=== PATIENT | male | born 1950 | race Caucasian/White ===

== ENCOUNTER 2016-06-30 14:13 | Inpatient (IN) | payer MEDICARE ==
--- NOTE | 2016-06-30 14:29 | ER Document Report ---
ED Neuro Symptoms/Deficit - General Mode of Arrival: Medic Information source: Patient Notes: Patient is a 66-year-old male, with history of hemorrhagic CVA in 2002, presenting to the emergency department with concerns of another possible stroke. Patient states he awoke at 10:30 AM with increased left-sided weakness and facial droop with slurred speech. Patient states that he went to bed at approximately 0100 at his baseline. Patient admits to falling yesterday, but states that he falls almost daily due to his baseline left-sided weakness. Patient confirms that his left-sided weakness is indeed worse than his baseline today. Patient also has a history of smoking, hypertension, and diabetes. TRAVEL OUTSIDE OF THE [place] IN LAST 30 DAYS: No - HPI Patient complains to provider of: Facial Droop - Left, Speech Impairment - Slurred, Weakness - Left Onset: This morning - 10:30 (awoke with symptoms) Awoke with symptoms: Yes Symptoms are: Constant, Noted on awakening Duration: Continues in ED Baseline Cognitive: Alert, oriented X 3 <JACKLYN GARCIA - Last Filed: 06/30/16 14:33> <REGINALD POON - Last Filed: 06/30/16 15:25> - General Chief Complaint: S/S of Possible Stroke Stated Complaint: STROKE SYMPTOMS - Related Data Allergies/Adverse Reactions: No Known Allergies Allergy (Verified 08/22/11 16:07) Past Medical History - General Information source: Patient, [facility] Records - Social History Smoking Status: Current Every Day Smoker Cigarette use (# per day): Yes Family History: Reviewed & Not Pertinent - Past Medical History Cardiac Medical History: Reports: Hx Hypertension Neurological Medical History: Reports: Hx Cerebrovascular Accident - 2002 Endocrine Medical History: Reports: Hx Diabetes Mellitus Type 2 <JACKLYN GARCIA - Last Filed: 06/30/16 14:33> Review of Systems - Review of Systems Constitutional: See HPI, Weakness - Left-sided EENT: No symptoms reported Cardiovascular: No symptoms reported Respiratory: No symptoms reported Gastrointestinal: No symptoms reported Genitourinary: No symptoms reported Male Genitourinary: No symptoms reported Musculoskeletal: No symptoms reported Skin: No symptoms reported Hematologic/Lymphatic: No symptoms reported Neurological/Psychological: See HPI, Weakness - Left-sided, Speech impairment, Other - Left Facial Droop -: Yes All other systems reviewed and negative <JACKLYN GARCIA - Last Filed: 06/30/16 14:33> Physical Exam - Vital signs Interpretation: Normal - Notes Notes: GENERAL: VS as per nursing doc. Well-appearing, well-nourished and in no acute distress. HEAD: Atraumatic, normocephalic. EYES: Pupils equal round and reactive to light, extraocular movements intact, sclera anicteric, no conjunctival injection or discharge. ENT: Nares patent, oropharynx clear without exudates. Moist mucous membranes. NECK: Normal range of motion, supple, no carotid bruits. LUNGS: Breath sounds are very coarse with mild wheezing bilaterally and equal. No rales or rhonchi. HEART: Normal S1S2. Regular rate and rhythm without murmurs. Equal peripheral pulses. ABDOMEN: Soft, non-tender. Protuberant EXTREMITIES: Normal range of motion. No calf tenderness. 2+ pitting edema. NEUROLOGICAL: GCS 15, Cranial nerves II-XII intact except for left facial nasolabial flattening and slight droop. Normal visual mccoy. Normal speech without aphasia. Left pronator drift. 5/5 RUE strength, 4/5 RLE strength, 5/5 LUE strength, 5-/5 LLE strength. No cerebellar abnormalities including normal finger-nose testing. Negative Babinski, 1+= DTR refelexes. PSYCH: Normal mood, normal affect. SKIN: Warm, Dry, no cyanosis, Cap refill < 2 sec. there are superficial abrasions to the right leg and left wrist no bony abnormality <REGINALD POON - Last Filed: 06/30/16 15:25> Course - Re-evaluation Re-evalutation: 06/30/16 14:31 Patient have a hemorrhagic stroke in 2002 and this is a wake-up stroke at 10:30 today so no definitive last known normal except for approximately 1 AM when the patient went to bed. He is not a TPA candidate for both of these reasons. He does have some chronic left arm and leg weakness which appears to be the cause of his fall yesterday but he states it is significantly worse today. - Laboratory Result Diagrams: 06/30/16 14:30 06/30/16 14:30 - Diagnostic Test Radiology reviewed: Image reviewed, Reports reviewed - CT: No acute process XRay : Non-acute - EKG Interpretation by Mo EKG shows normal: Sinus rhythm Rate: Normal Rhythm: NSR Additional EKG results interpreted by me: 06/30/16 14:32 There is some mild ST depression in the inferior leads. Normal QRS. No ectopy. - Consults Dr. Guardado Time consulted: 15:23 Consulted provider: will see as inpatient - Discussed case with Dr. Guardado and he will admit patient <REGINALD POON - Last Filed: 06/30/16 15:25> ED Alteplase Inc/Exc Criteria ED NIH Stroke Scale Discharge <JACKLYN GARCIA - Last Filed: 06/30/16 14:33> - Discharge Admitting Provider: Hospitalist - Dr. Guardado Unit Admitted: Telemetry Scribe Attestation: 06/30/16 15:24 I personally performed the services described in the documentation, reviewed and edited the documentation which was dictated to the scribe in my presence, and it accurately records my words and actions. <REGINALD POON - Last Filed: 06/30/16 15:25> - Discharge Clinical Impression: CVA (cerebral vascular accident) Condition: Serious Disposition: ADMITTED INPATIENT Scribe Documentation - Scribe Written by Scribe:: Jacklyn Garcia 06/30/2016 1433 acting as scribe for :: Kumar <JACKLYN GARCIA - Last Filed: 06/30/16 14:33>
[2016-06-30 14:43] LABS: ABSOLUTE BASOPHILS # (AUTO) 0.1 10^3/uL (0.0-0.2); ABSOLUTE EOSINOPHILS # (AUTO) 0.1 10^3/uL (0.0-0.6); ABSOLUTE LYMPHOCYTES (AUTO) 3.5 10^3/uL (0.5-4.7); ABSOLUTE MONOCYTES (AUTO) 0.6 10^3/uL (0.1-1.4); ABSOLUTE NEUT (AUTO) 6.4 10^3/uL (1.7-8.2); BASOPHILS % (AUTO) 0.5 % (0-2); HEMOGLOBIN 11.9 g/dL (13.5-17.0); HGB HCT DIFFERENCE 0.7; LYMPHOCYTES % (AUTO) 32.7 % (13-45); MEAN CORPUSCULAR HEMOGLOBIN 30.7 pg (27.0-33.4); MEAN CORPUSCULAR HGB CONC 33.9 g/dL (32.0-36.0); MEAN CORPUSCULAR VOLUME 91 fl (80-97); MONOCYTES % (AUTO) 5.8 % (3-13); RED BLOOD COUNT 3.86 10^6/uL (4.35-5.55); RED CELL DISTRIBUTION WIDTH 14.3 % (11.5-14.0); WHITE BLOOD COUNT 10.7 10^3/uL (4.0-10.5)
[2016-06-30 14:46] LABS: PROTHROMBIN TIME 12.1 SEC (11.4-15.4)
[2016-06-30 14:47] LABS: PARTIAL THROMBOPLASTIN TIME 31.8 SEC (23.5-35.8)
[2016-06-30] MEDS ORDERED: ASPIRIN 81 MG TABLET, CHEWABLE PO ONE (15:06)
[2016-06-30 15:07] LABS: BLOOD UREA NITROGEN 38 mg/dL (7-20); CALCIUM 7.8 mg/dL (8.4-10.2); CREATININE RESULT 1.48 mg/dL (0.52-1.25); GLUCOSE 171 mg/dL (75-110)
[2016-06-30 15:08] LABS: ALANINE AMINOTRANSFERASE 34 U/L (21-72); ALBUMIN 2.7 g/dL (3.5-5.0); ALKALINE PHOSPHATASE 128 U/L (38-126); ANION GAP 8 (5-19); ASPARTATE AMINO TRANSFERASE 32 U/L (17-59); BILIRUBIN,DIRECT 0.2 mg/dL (0.0-0.4); BILIRUBIN,TOTAL 0.2 mg/dL (0.2-1.3); CARBON DIOXIDE 29 mmol/L (22-30); CHLORIDE 105 mmol/L (98-107); CREATINE KINASE 329 U/L (55-170); SODIUM 141.7 mmol/L (137-145); TOTAL PROTEIN 5.3 g/dL (6.3-8.2)
[2016-06-30 15:20] LABS: CREATINE KINASE MB 3.63 ng/mL (<4.55); TROPONIN I 0.013 ng/mL
[2016-06-30] MEDS ORDERED: DEXTROSE 50%-WATER 25 GM/50 ML DISP.SYRIN IV PRN ×2 (15:45)
[2016-06-30] MEDS ORDERED: DEXTROSE 40% GEL 15 GM TUBE PO PRN ×2 (15:45)
[2016-06-30] MEDS ORDERED: GLUCAGON,HUMAN RECOMB 1 MG INJ IM PRN (15:45)
[2016-06-30] MEDS ORDERED: INSULIN LISPRO 100 UNIT/ML 3 ML VIAL SUBCUT PRN (15:45)
[2016-06-30] MEDS ORDERED: HYDRALAZINE HCL INJ/PF 20 MG/1 ML SDV IV PRN (15:46)
[2016-06-30] MEDS ORDERED: ONDANSETRON HCL INJ/PF 4 MG/2 ML SDV IV PRN (15:53)
[2016-06-30] MEDS ORDERED: ALBUTEROL SULFATE 0.083% NEB 2.5 MG/3 ML AMPUL NEB PRN (16:18)
--- NOTE | 2016-06-30 16:32 | PDOC H&P ---
History of Present Illness [facility] Patient complains of: Difficulty speaking History of Present Illness: EVELYN BROWN is a 66 year old male with past medical history of hemorrhagic stroke in 2002 and residual mild left-sided weakness presents with onset this morning at 10:30 AM upon awakening of difficulty speaking and possibly slight worsening of his chronic left-sided weakness. He went to bed at 1 AM and he had no new difficulties at that time. Patient does not take home aspirin regimen. He continues to smoke despite prior stroke and multiple risk factors. He resides with his daughter and other family members and ambulates with a rolling walker at baseline. Past Medical History Cardiac Medical History: Reports: Hyperlipidema, Hypertension Pulmonary Medical History: Reports: Chronic Obstructive Pulmonary Disease (COPD) Neurological Medical History: Reports: Hemorrhagic CVA Endocrine Medical History: Reports: Diabetes Mellitus Type 2 Renal/ Medical History: Reports: Chronic Kidney Disease Psychiatric Medical History: Reports: Tobacco Dependency Past Surgical History Past Surgical History: Reports: Cholecystectomy, Orthopedic Surgery - Left knee , left arm, back Social History Information Source: Patient Lives with: Family Smoking Status: Current Every Day Smoker Frequency of Alcohol Use: None Hx Recreational Drug Use: No Hx Prescription Drug Abuse: No - Advance Directive Resuscitation Status: Full Code Family History Family History: CAD - Father, Malignancy - Lung cancer mother Parental Family History Reviewed: Yes Children Family History Reviewed: Yes Sibling(s) Family History Reviewed.: Yes Medication/Allergy Home Medications: Amlodipine Besylate [Norvasc 5 mg Tablet] 5 mg PO DAILY 08/22/11 Aspirin [Aspirin 325 mg Tablet] 325 mg PO DAILY 08/22/11 Citalopram Hydrobromide [Celexa 20 Mg Tablet] 20 mg PO 08/22/11 Hydrochlorothiazide [Hydrodiuril 50 mg Tablet] 50 mg PO QAM 08/22/11 Insulin Glargine,Hum.rec.anlog [Lantus] 44 units SUBCUT QHS 08/22/11 Insulin Lispro [Humalog] 10 units SUBCUT PRN PRN 08/22/11 Lisinopril [Prinivil 40 mg Tablet] 40 mg PO AC 08/22/11 Meloxicam [Mobic 7.5 Mg Tablet] 7.5 mg PO PRN PRN 08/22/11 Metformin HCl [Glucophage 500 Mg Tablet] 1,000 mg PO BID 08/22/11 [place]-3 Acid Ethyl Esters [Lovaza 1 Gm Capsule] 1 gm PO 08/22/11 Omeprazole [Prilosec 20 mg Capsule] 20 mg PO BID 08/22/11 Pramipexole Di-HCl [Mirapex 0.5 Mg Tablet] 0.5 mg PO 08/22/11 Pravastatin Sodium [Pravachol] 80 mg PO 08/22/11 Trazodone HCl [Desyrel 50 Mg Tablet] 50 mg PO QHS 08/22/11 Allergies/Adverse Reactions: No Known Allergies Allergy (Verified 08/22/11 16:07) Review of Systems Constitutional: ABSENT: chills, fever(s), headache(s), weight gain, weight loss Eyes: ABSENT: visual disturbances Ears: ABSENT: hearing changes Cardiovascular: PRESENT: edema. ABSENT: chest pain, dyspnea on exertion, orthropnea, palpitations Respiratory: ABSENT: cough, hemoptysis Gastrointestinal: ABSENT: abdominal pain, constipation, diarrhea, hematemesis, hematochezia, nausea, vomiting Genitourinary: ABSENT: dysuria, hematuria Musculoskeletal: ABSENT: joint swelling Integumentary: ABSENT: rash, wounds Neurological: PRESENT: abnormal speech, focal weakness, lack of coordination. ABSENT: abnormal gait, confusion, dizziness, syncope Psychiatric: ABSENT: anxiety, depression, homidical ideation, suicidal ideation Endocrine: ABSENT: cold intolerance, heat intolerance, polydipsia, polyuria Hematologic/Lymphatic: ABSENT: easy bleeding, easy bruising Physical Exam Vital Signs: Temp Pulse Resp BP Pulse Ox 97.7 F 79 14 132/57 H 93 06/30/16 14:39 06/30/16 14:39 06/30/16 15:01 06/30/16 15:01 06/30/16 15:01 Intake & Output 06/29/16 06/30/16 07/01/16 06:59 06:59 06:59 Weight 69.853 kg General appearance: PRESENT: no acute distress, well-developed, well-nourished Head exam: PRESENT: atraumatic, normocephalic Eye exam: PRESENT: conjunctiva pink, EOMI, PERRLA. ABSENT: scleral icterus Ear exam: PRESENT: normal external ear exam Mouth exam: PRESENT: moist, tongue midline Neck exam: ABSENT: carotid bruit, JVD, lymphadenopathy, thyromegaly Respiratory exam: PRESENT: wheezes. ABSENT: rales, rhonchi Cardiovascular exam: PRESENT: RRR. ABSENT: diastolic murmur, rubs, systolic murmur Pulses: PRESENT: normal dorsalis pedis pul Vascular exam: PRESENT: normal capillary refill GI/Abdominal exam: PRESENT: normal bowel sounds, soft. ABSENT: distended, guarding, mass, organolmegaly, rebound, tenderness Rectal exam: PRESENT: deferred Extremities exam: PRESENT: full ROM, pedal edema, +2 edema. ABSENT: calf tenderness, clubbing Neurological exam: PRESENT: alert, awake, oriented to person, oriented to place , oriented to time, oriented to situation, CN II-XII grossly intact, motor sensory deficit - 5/5 strength in right upper extremity and right lower extremity. 4/5 strength in left upper extremity and left lower extremity. Psychiatric exam: PRESENT: appropriate affect, normal mood. ABSENT: homicidal ideation, suicidal ideation Skin exam: PRESENT: dry, intact, warm, other - Unusual rash over left forearm. ABSENT: cyanosis, rash Results Laboratory Results: 06/30/16 14:30 06/30/16 14:30 06/30/16 06/30/16 14:30 14:30 WBC 10.7 H RBC 3.86 L Hgb 11.9 L Hct 35.0 L MCV 91 MCH 30.7 MCHC 33.9 RDW 14.3 H Plt Count 277 Seg Neutrophils % 60.0 Lymphocytes % 32.7 Monocytes % 5.8 Eosinophils % 1.0 Basophils % 0.5 Absolute Neutrophils 6.4 Absolute Lymphocytes 3.5 Absolute Monocytes 0.6 Absolute Eosinophils 0.1 Absolute Basophils 0.1 Sodium 141.7 Potassium 5.0 Chloride 105 Carbon Dioxide 29 Anion Gap 8 BUN 38 H Creatinine 1.48 H Est GFR ( Amer) 58 L Est GFR (Non-Af Amer) 48 L Glucose 171 H Calcium 7.8 L Total Bilirubin 0.2 AST 32 ALT 34 Alkaline Phosphatase 128 H Total Protein 5.3 L Albumin 2.7 L 06/30/16 06/30/16 14:30 14:30 Creatine Kinase 329 H CK-MB (CK-2) 3.63 Troponin I 0.013 Impressions: Chest X-Ray 06/30/16 14:13 IMPRESSION: NO SIGNIFICANT RADIOGRAPHIC FINDING IN THE CHEST. Head CT 06/30/16 14:13 IMPRESSION: No acute intracranial abnormality. Pertinent positive or negative findings of the imaging study reported as a CRITICAL EXAM to Kriss Rodrigues at14:27 on 06/30/2016. Category of Critical Exam: Stroke alert Assessment & Plan - Diagnosis (1) CVA (cerebral vascular accident) Is this a current diagnosis for this admission?: YesPlan: Patient has remote hemorrhagic CVA in 2002 with residual left-sided weakness. He has acute speech difficulties and increasing left-sided weakness this morning. He will be admitted to the hospital. Placed on telemetry monitoring. EKG shows sinus rhythm. Start aspirin. Start Lipitor 80 mg daily. Check MRI of the brain, carotid Doppler, echocardiogram. Physical therapy/ occupational therapy evaluation. DVT prophylaxis. (2) Ambulatory dysfunction Is this a current diagnosis for this admission?: YesPlan: Patient ambulates with rolling walker at baseline. Physical therapy to evaluate. (3) Diabetes Qualifiers: Diabetes mellitus type: type 2 Diabetes mellitus termite control service representative insulin use : without termite control service representative use Chronic kidney disease stage: stage 3 (moderate) Is this a current diagnosis for this admission?: YesPlan: Resume home medication of glipizide 10 mg daily. Sliding scale insulin coverage. Check hemoglobin A1c. (4) Hypertension Is this a current diagnosis for this admission?: YesPlan: Verify home medications and resume. When necessary IV hydralazine. (5) Edema Is this a current diagnosis for this admission?: YesPlan: Check TSH, proBNP. Check echocardiogram. Chronic kidney disease stage III possibly contributing. Start Lasix 40 mg by mouth daily. (6) Chronic kidney disease, stage III (moderate) Is this a current diagnosis for this admission?: Yes (7) COPD (chronic obstructive pulmonary disease) Is this a current diagnosis for this admission?: YesPlan: Discontinue smoking. When necessary albuterol nebulizer treatments. (8) Tobacco abuse Is this a current diagnosis for this admission?: Yes - Time Time Spent: Greater than 70 Minutes
[2016-06-30] MEDS ORDERED: FUROSEMIDE 40 MG TABLET PO ONE (18:00)
[2016-06-30 18:18] LABS: FREE T3 3.82 pg/mL (2.77-5.27)
[2016-06-30 18:31] LABS: THYROID STIMULATING HORMONE 1.23 uIU/mL (0.47-4.68)
--- NOTE | 2016-06-30 20:50 | EKG REPORT ---
SEVERITY:- BORDERLINE ECG - SINUS RHYTHM BORDERLINE T ABNORMALITIES, INFERIOR LEADS : Confirmed by: Jen Oreilly 30-Jun-2016 20:48:11
[2016-06-30] MEDS ORDERED: ATORVASTATIN CALCIUM 80 MG TABLET PO SCH (22:00)
[2016-07-01] MEDS: ACETAMINOPHEN 325 MG TABLET PO PRN ×2 (00:40→11:14)
[2016-07-01 07:18] LABS: HEMATOCRIT 34.7 % (37.9-51.0); HEMOGLOBIN 11.8 g/dL (13.5-17.0); HGB HCT DIFFERENCE 0.7; MEAN CORPUSCULAR HEMOGLOBIN 30.7 pg (27.0-33.4); MEAN CORPUSCULAR HGB CONC 33.9 g/dL (32.0-36.0); MEAN CORPUSCULAR VOLUME 91 fl (80-97); RED BLOOD COUNT 3.83 10^6/uL (4.35-5.55); RED CELL DISTRIBUTION WIDTH 13.7 % (11.5-14.0); WHITE BLOOD COUNT 8.9 10^3/uL (4.0-10.5)
[2016-07-01 07:22] LABS: ANION GAP 5 (5-19); BLOOD UREA NITROGEN 37 mg/dL (7-20); CALCIUM 8.5 mg/dL (8.4-10.2); CARBON DIOXIDE 31 mmol/L (22-30); CHLORIDE 105 mmol/L (98-107); CREATININE RESULT 1.19 mg/dL (0.52-1.25); GLUCOSE 110 mg/dL (75-110); SODIUM 141.4 mmol/L (137-145)
[2016-07-01] MEDS ORDERED: FUROSEMIDE 40 MG TABLET PO SCH (08:00)
[2016-07-01] MEDS ORDERED: ENOXAPARIN SODIUM INJ 40 MG/0.4 ML DISP.SYRIN SUBCUT SCH (08:00)
[2016-07-01] MEDS ORDERED: ASPIRIN 325 MG TABLET, ENT COATED PO SCH (10:00)
[2016-07-01 12:50] VITALS: BP 192/98
[2016-07-01] MEDS ORDERED: METOPROLOL TARTRATE PF/INJ 5 MG/5 ML SDV IV PRN (12:55)
[2016-07-01] MEDS ORDERED: HYDROCODONE/ACETAMINOPHEN 10-325 MG TABLET PO PRN (12:55)
[2016-07-01] MEDS ORDERED: LISINOPRIL PO SCH (13:00)
[2016-07-01] MEDS ORDERED: HYDROCHLOROTHIAZIDE PO SCH (13:00)
[2016-07-01] MEDS ORDERED: [UNRECOGNIZED DRUG - OTHER] PO SCH (13:00)
[2016-07-01] MEDS ORDERED: HYDROCHLOROTHIAZIDE 25 MG TABLET PO ONE (13:30)
[2016-07-01] MEDS ORDERED: LISINOPRIL 10 MG TABLET PO ONE (13:30)
--- NOTE | 2016-07-01 15:08 | PDOC DISCHARGE SUMMARY ---
General - Admit/Disc Date/PCP Admission Date[facility]: [facility] - Discharge Diagnosis (1) Left against medical advice Is this a current diagnosis for this admission?: Yes (2) CVA (cerebral vascular accident) Is this a current diagnosis for this admission?: Yes (3) Carotid stenosis, bilateral Is this a current diagnosis for this admission?: Yes (4) Ambulatory dysfunction Is this a current diagnosis for this admission?: Yes (5) Diabetes Is this a current diagnosis for this admission?: Yes (6) Hypertension Is this a current diagnosis for this admission?: Yes (7) Edema Is this a current diagnosis for this admission?: Yes (8) Chronic kidney disease, stage III (moderate) Is this a current diagnosis for this admission?: Yes (9) COPD (chronic obstructive pulmonary disease) Is this a current diagnosis for this admission?: Yes (10) Tobacco abuse Is this a current diagnosis for this admission?: Yes - Additional Information Resuscitation Status: Full Code Home Medications: Atorvastatin Calcium [Lipitor 80 mg Tablet] 80 mg PO DAILY 07/01/16 Dicyclomine HCl [Bentyl 20 mg Tablet] 20 mg PO ACHS 07/01/16 Ferrous Gluconate 324 mg PO BID 07/01/16 Fluticasone/Vilanterol [Breo Ellipta 100-25 Mcg INH] 1 puff IH DAILY 07/01/16 Furosemide [Lasix] 40 mg PO QAM 07/01/16 Gabapentin [Neurontin 300 mg Capsule] 300 mg PO QPM 07/01/16 Glipizide [Glucotrol 10 mg Tablet] 10 mg PO BID 07/01/16 Hydrocodone/Acetaminophen [[place] 10-325 mg Tablet] 1 tab PO TIDP PRN 07/01/16 Insulin NPH Hum/Reg Insulin Hm [Novolin 70-30 100 Unit/ml Vial] 20 units SQ DAILY 07/01/16 Lisinopril/Hydrochlorothiazide [Zestoretic 20-12.5 mg Tablet] 2 tab PO DAILY 01/07 Potassium Chloride [Klor-Con 10] 10 meq PO DAILY 07/01/16 Pramipexole Di-HCl [Pramipexole Dihydrochloride] 0.5 mg PO TID 07/01/16 Simvastatin [Zocor 80 mg Tablet] 80 mg PO DAILY 07/01/16 Tadalafil [Cialis] 10 mg PO DAILYP PRN 07/01/16 Tiotropium [place] [Spiriva Handihaler 5 Cap/Kit (18 Mcg/Cap)] 1 cap IH DAILY Trazodone HCl [Desyrel] 100 mg PO QHS 07/01/16 History of Present Illness Patient complains of: Speech difficulty History of Present Illness: EVELYN BROWN is a 66 year old male with past medical history of hemorrhagic stroke in 2002 and residual mild left-sided weakness presents with onset this morning at 10:30 AM upon awakening of difficulty speaking and possibly slight worsening of his chronic left-sided weakness. He went to bed at 1 AM and he had no new difficulties at that time. Patient does not take home aspirin regimen. He continues to smoke despite prior stroke and multiple risk factors. He resides with his daughter and other family members and ambulates with a rolling walker at baseline. Hospital Course Hospital Course: Patient was admitted for evaluation of above-mentioned complaints. MRI of the brain was negative. Carotid Doppler showed bilateral carotid stenosis with right internal carotid artery having 50-69% stenosis and left internal carotid artery having less than 50% stenosis. Echocardiogram was ordered but patient left AGAINST MEDICAL ADVICE prior to having this study performed. Patient had uncontrolled hypertension. His blood pressures were poorly controlled at time that he signed out AGAINST MEDICAL ADVICE. Nursing staff. The patient prior to him signing out. I subsequently also talked to patient and advised him that he could sustain a stroke, if he left with such poorly controlled blood pressure. He proceeded to leave AGAINST MEDICAL ADVICE. Physical Exam Vital Signs: Temp Pulse Resp BP Pulse Ox 98.5 F 75 14 192/98 H 96 06/30/16 18:24 07/01/16 12:48 07/01/16 12:48 07/01/16 12:50 07/01/16 12:48 Intake & Output 06/30/16 07/01/16 07/02/16 06:59 06:59 06:59 Intake Total 740 Output Total 1500 1050 Balance -760 -1050 Physical exam not performed as patient left AGAINST MEDICAL ADVICE. He was alert and oriented to person, place, time at the time of my evaluation. Results Laboratory Results: 07/01/16 07:05 07/01/16 07:05 07/01/16 07/01/16 07:05 07:05 WBC 8.9 RBC 3.83 L Hgb 11.8 L Hct 34.7 L MCV 91 MCH 30.7 MCHC 33.9 RDW 13.7 Plt Count 295 Sodium 141.4 Potassium 5.0 Chloride 105 Carbon Dioxide 31 H Anion Gap 5 BUN 37 H Creatinine 1.19 Est GFR ( Amer) > 60 Est GFR (Non-Af Amer) > 60 Glucose 110 Calcium 8.5 Impressions: Head MRI 06/30/16 00:00 IMPRESSION: Chronic ischemic changes. Chest X-Ray 06/30/16 14:13 IMPRESSION: NO SIGNIFICANT RADIOGRAPHIC FINDING IN THE CHEST. Head CT 06/30/16 14:13 IMPRESSION: No acute intracranial abnormality. Pertinent positive or negative findings of the imaging study reported as a CRITICAL EXAM to Kriss Rodrigues at14:27 on 06/30/2016. Category of Critical Exam: Stroke alert Carotid Doppler Study 07/01/16 00:00 IMPRESSION: 1. Technical limitations as above. 2. 50- 69% stenosis of the proximal right ICA. 3. Less than 50% stenosis of the proximal left ICA. Plan Discharge Plan: Patient left AGAINST MEDICAL ADVICE. Time Spent: Less than 30 Minutes
[2016-07-01] MEDS ORDERED: GLIPIZIDE 10 MG TABLET PO SCH (16:00)
[2016-07-01] MEDS ORDERED: (PENDING PHARMACY ID) (Ferrous Gluconate [Ferrous Gluconate] 324 MG) PO SCH (18:00)
[2016-07-01] MEDS ORDERED: GABAPENTIN 300 MG CAPSULE PO SCH (18:00)
[2016-07-01] MEDS ORDERED: FERROUS SULFATE 325 MG TABLET PO SCH (18:00)
[2016-07-02] MEDS ORDERED: (PENDING PHARMACY ID) (Fluticasone/Vilanterol [Breo Ellipta 100-25 Mcg Inh] 1 PUFF) IH SCH (10:00)
[2016-07-02] MEDS ORDERED: LISINOPRIL 10 MG TABLET PO SCH (10:00)
[2016-07-02] MEDS ORDERED: HYDROCHLOROTHIAZIDE 25 MG TABLET PO SCH (10:00)
== END 2016-07-01 15:20 | disposition left against medical advice (07) | DRG 68 ==
LOC: ER 14:13 → EH 15:51 → UNDOADMIN 17:26
PROVIDERS: ADMIT Family Medicine; ATTEND Family Medicine
DX: I65.29 Occlusion and stenosis of unspecified carotid artery (principal); I69.354 Hemiplegia and hemiparesis following cerebral infarction affecting left non-dominant side; E78.5 Hyperlipidemia, unspecified; F17.210 Nicotine dependence, cigarettes, uncomplicated; I12.9 Hypertensive chronic kidney disease with stage 1 through stage 4 chronic kidney disease, or unspecified chronic kidney disease; E11.22 Type 2 diabetes mellitus with diabetic chronic kidney disease; N18.3 Chronic kidney disease, stage 3 (moderate); J44.9 Chronic obstructive pulmonary disease, unspecified; Z90.49 Acquired absence of other specified parts of digestive tract; Z82.49 Family history of ischemic heart disease and other diseases of the circulatory system; Z80.1 Family history of malignant neoplasm of trachea, bronchus and lung; Z79.82 Long term (current) use of aspirin; Z79.4 Long term (current) use of insulin
CPT/HCPCS: 36415; 70450; 70551; 71010; 80048; 80053; 82550; 82553; 82962; 83036; 83880; 84439; 84443; 84481; 84484; 85025; 85027; 85610; 85730; 93005; 93010; 93880; 99285; G8978-GP; G8979-GP; G8984-GO; G8985-GO; G8999-GN; G9158-GN; G9186-GN; J0360; J1650; J3490

== ENCOUNTER 2016-07-12 21:54 | Emergency (ER) | payer MEDICARE ==
--- NOTE | 2016-07-12 22:07 | ER Document Report ---
ED Extremity Problem, Upper - General Chief Complaint: Shoulder Injury Stated Complaint: LEFT SHOULDER PAIN Notes: The patient is a 66-year-old male, past medical history emphysema, prior CVA, presents after he tripped over his grandson's toys, fell and landed on his left shoulder. He felt like his shoulder came out of its socket and then it went back into place. He is complaining of pain when he moves his shoulder. He was given 75 g fentanyl by EMS prior to arrival and says his pain is under control. Denies numbness, tingling, head injury, neck pain, syncope or other injuries. TRAVEL OUTSIDE OF THE [place] IN LAST 30 DAYS: No - Related Data Allergies/Adverse Reactions: No Known Allergies Allergy (Verified 07/12/16 22:13) Past Medical History - General Information source: Patient - Social History Smoking Status: Current Every Day Smoker Family History: CAD - Father, Malignancy - Lung cancer mother - Past Medical History Cardiac Medical History: Reports: Hx Hypercholesterolemia, Hx Hypertension Pulmonary Medical History: Reports: Hx COPD Neurological Medical History: Reports: Hx Cerebrovascular Accident - 2002 Endocrine Medical History: Reports: Hx Diabetes Mellitus Type 2 Past Surgical History: Reports: Hx Cholecystectomy, Hx Orthopedic Surgery - Left knee, left arm, back Review of Systems - Review of Systems Notes: REVIEW OF SYSTEMS: CONSTITUTIONAL: -fevers, -chills EENT: -eye pain, -difficulty swallowing, -nasal congestion CARDIOVASCULAR: -chest pain, -syncope. RESPIRATORY: -cough, -SOB GASTROINTESTINAL: -abdominal pain, - nausea, -vomiting, -diarrhea GENITOURINARY: -dysuria, -hematuria MUSCULOSKELETAL: +left shoulder pain, -back pain, -neck pain SKIN: -rash or skin lesions. HEMATOLOGIC: -easy bruising or bleeding. LYMPHATIC: -swollen, enlarged glands. NEUROLOGICAL: -altered mental status or loss of consciousness, -headache, - neurologic symptoms PSYCHIATRIC: -anxiety, -depression. ALL OTHER SYSTEMS REVIEWED AND NEGATIVE. Physical Exam - Vital signs Vitals: Temp Pulse Resp BP Pulse Ox 97.9 F 101 H 20 172/97 H 95 07/12/16 21:58 07/12/16 21:58 07/12/16 21:58 07/12/16 21:58 07/12/16 21:58 - Notes Notes: PHYSICAL EXAMINATION: GENERAL: Well-appearing, well-nourished and in no acute distress. HEAD: Atraumatic, normocephalic. EYES: Pupils equal round and reactive to light, extraocular movements intact, sclera anicteric, conjunctiva are normal. ENT: nares patent, oropharynx clear without exudates. Moist mucous membranes. NECK: Normal range of motion, supple without lymphadenopathy LUNGS: Breath sounds clear to auscultation bilaterally and equal. No wheezes rales or rhonchi. HEART: Regular rate and rhythm without murmurs ABDOMEN: Soft, nontender, normoactive bowel sounds. No guarding, no rebound. No masses appreciated. EXTREMITIES: Tenderness over left anterior shoulder, able to touch opposite shoulder, strong radial pulses, no sensory changes NEUROLOGICAL: Cranial nerves grossly intact. Normal speech, normal gait. Normal sensory, motor, and reflex exams. PSYCH: Normal mood, normal affect. SKIN: Warm, Dry, normal turgor, no rashes or lesions noted. Course - Re-evaluation Re-evalutation: Patient has no signs of shoulder dislocation at this time. He may have dislocated his shoulder after his fall today, which caused the [place] fracture , and the dislocation spontaneously reduced prior to arrival to the emergency room. He is neurovascularly intact. Patient placed in sling and told to follow -up with orthopedics for further evaluation and treatment. - Vital Signs Vital signs: Temp Pulse Resp BP Pulse Ox 97.9 F 101 H 20 172/97 H 95 07/12/16 21:58 07/12/16 21:58 07/12/16 21:58 07/12/16 21:58 07/12/16 21:58 - Diagnostic Test Radiology reviewed: Image reviewed, Reports reviewed Radiology results interpreted by me: Left shoulder x-ray: IMPRESSION: BONE FRAGMENT INFEROMEDIAL TO THE GLENOHUMERAL JOINT PRESUMABLY REPRESENTS A DISPLACED [place] TYPE FRACTURE. CORRELATE WITH HISTORY OF PRIOR DISLOCATION. Procedures - Immobilization Left Shoulder Time completed: 22:47 Pre-Proc Neuro Vasc Exam: Normal Immobilizer type: Sling Performed by: PCT Post-Proc Neuro Vasc Exam: Normal Alignment checked and good: Yes Discharge - Discharge Clinical Impression: Shoulder dislocation Qualifiers: Encounter type: initial encounter Laterality: left Qualified Code(s): S43.005A - Unspecified dislocation of left shoulder joint, initial encounter Shoulder fracture, left Qualifiers: Encounter type: initial encounter Fracture type: closed Qualified Code(s): S42.92XA - Fracture of left shoulder girdle, part unspecified, initial encounter for closed fracture Condition: Stable Disposition: HOME, SELF-CARE Additional Instructions: Keep your left shoulder in the sling. Ice packs and Motrin for pain control. [place] for severe pain. Follow-up with the orthopedic surgeon on Friday. Fracture You have a fracture. The typical broken bone requires only protection and sufficient time for healing. "Setting" is necessary only if the bones are crooked or out of position. The physician will re-assess you periodically to make certain that the bone heals without complications. It's important that you follow the instructions given you. The initial treatment is immobilization, elevation of the injury, and cold packs. Not all fractures require a cast. Depending on the location and type of fracture, immobilization may consist of a splint, cast, sling, bulky dressing , or simply rest. The length of time required for healing depends on the location and type of fracture, and on the age of the patient. The treatment plan the physician has outlined for you is customized to your fracture and health condition. Call the doctor or return at once if pain becomes severe, or if severe swelling or numbness develop. Shoulder Dislocation You've had a shoulder dislocation. Even after the shoulder is put back in place, careful care is needed to prevent further problems. As the shoulder dislocated, injury to the joint itself occurred. This must be allowed to heal. The usual treatment is a shoulder immobilizing sling. If this is your first dislocation, it must be left in place until the doctor allows you to remove it. This is important. Ice pack the shoulder frequently. One of the most important aspects of care for a shoulder dislocation is mobility exercises and strengthening exercises. You'll start these when it's safe to start moving the shoulder joint. Be sure to keep your follow-up appointments. If you develop numbness in the arm or hand, weakness of the hand muscles, arm swelling, or arm discoloration, call the doctor or return immediately. Prescriptions: Hydrocodone/Acetaminophen [[place] 5-325 mg Tablet] 1 tab PO Q6H PRN #12 tablet PRN Reason: Referrals: CAMRYN HOUSE MD [Primary Care Provider] - Follow up as needed ELIDA HOBSON DO [ACTIVE STAFF] - Follow up as needed
[2016-07-12] MEDS ORDERED: NAPROXEN 250 MG TABLET PO ONE (22:39)
[2016-07-12 23:06] VITALS: BP 148/78
== END 2016-07-12 23:05 | disposition home or self-care (01) ==
LOC: ER 21:54
DX: S43.005A Unspecified dislocation of left shoulder joint, initial encounter (principal); S42.92XA Fracture of left shoulder girdle, part unspecified, initial encounter for closed fracture; W01.0XXA Fall on same level from slipping, tripping and stumbling without subsequent striking against object, initial encounter; F17.200 Nicotine dependence, unspecified, uncomplicated; E78.00 Pure hypercholesterolemia, unspecified; I10 Essential (primary) hypertension; J44.9 Chronic obstructive pulmonary disease, unspecified; E11.9 Type 2 diabetes mellitus without complications; Z86.73 Personal history of transient ischemic attack (TIA), and cerebral infarction without residual deficits; Z90.49 Acquired absence of other specified parts of digestive tract
CPT/HCPCS: 99283; 73030; A9270